=== PATIENT | female | born 1990 | race Two or more races ===

== ENCOUNTER → 2018-07-29 | Emergency (ER) | payer OTHER | END | disposition left against medical advice (07) | LOC: ER 09:59 | DX: Z53.20 Procedure and treatment not carried out because of patient's decision for unspecified reasons (principal) ==

== ENCOUNTER → 2019-08-19 | Emergency (ER) | payer OTHER ==
[~2019-08-19] VITALS: Ht 152.4 cm; Wt 72.6 kg
== END | disposition left against medical advice (07) ==
LOC: ER 15:34
DX: R10.11 Right upper quadrant pain (principal)